=== PATIENT | female | born 1985 | race Caucasian/White ===

== ENCOUNTER 2019-03-11 01:18 | Inpatient (IN) | payer OTHER ==
[~2019-03-11 01:18] MED LIST: OXYTOCIN 10 UNIT/ML VIAL IM PRN
[2019-03-11] MEDS ORDERED: DIPH/PERTUSS(ACELL)/TETANUS VAC/PF 0.5 ML SYR (>=10YO) IM PRN (01:26)
[2019-03-11] MEDS ORDERED: DIBUCAINE 1% OINTMENT 28 GM TP PRN (01:26)
[2019-03-11] MEDS ORDERED: MEASLES,MUMPS&RUBELLA VACC/PF 0.5 ML VIAL SUBCUT PRN (01:26)
[2019-03-11] MEDS ORDERED: BENZOCAINE/MENTHOL AEROSOL SPRAY 56 ML TOP PRN (01:26)
[2019-03-11] MEDS ORDERED: OXYTOCIN/NORMAL SALINE 20 UNIT/1,000 ML RTUINJ IV PRN (01:26)
[2019-03-11] MEDS ORDERED: RINGERS SOLUTION,LACTATED 1,000 ML IV PRN (01:26)
[2019-03-11] MEDS ORDERED: ZOLPIDEM TARTRATE 5 MG TABLET PO PRN (01:26)
[2019-03-11] MEDS ORDERED: PSEUDOEPHEDRINE HCL 30 MG TABLET PO PRN (01:27)
[2019-03-11] MEDS ORDERED: GLYCERIN/WITCH HAZEL LEAF 1 EACH MED..WIPE TP PRN (01:27)
[2019-03-11] MEDS ORDERED: PROMETHAZINE HCL 25 MG SUPP.RECT PR PRN (01:27)
[2019-03-11] MEDS ORDERED: ACETAMINOPHEN 650 MG SUPP.RECT PR PRN (01:27)
[2019-03-11] MEDS ORDERED: DIPHENHYDRAMINE HCL 25 MG CAPSULE PO PRN (01:27)
[2019-03-11] MEDS ORDERED: PROMETHAZINE HCL INJ 25 MG/1 ML VIAL IV PRN (01:27)
[2019-03-11] MEDS ORDERED: MAGNESIUM HYDROXIDE SUSP 30 ML UDCUP PO PRN (01:27)
[2019-03-11] MEDS ORDERED: PROMETHAZINE HCL 25 MG TABLET PO PRN (01:27)
[2019-03-11] MEDS ORDERED: NA PHOS,M-B/NA PHOS,DI-BA (ADULT) 133 ML ENEMA PR PRN (01:27)
[2019-03-11] MEDS ORDERED: OXYTOCIN 10 UNIT/ML VIAL ONE (01:36)
--- NOTE | 2019-03-11 01:39 | Admission Physical ---
Datetime Report Generated by CPN: 03/11/2019 01:39 CURRENT ADMISSION Chief Complaint: Uterine Contractions; Suspected Ruptured Membranes Admit Impression : Active Labor Admit Plan: Admit to Unit; Initiate Labor Protocol ALLERGIES Medication Allergies: No Medication Allergies: Penicillins/Hives (03/11/2019) Latex: No Latex Allergies OBSTETRICAL HISTORY EDC: 04/09/2019 00:00 : 6 Para: 4 Term: 3 : 1 SAB: 1 IAB: 0 Ectopic: 0 Livin Cesareans: 0 VBACs: 0 Multiple Births: 0 SEE RECORDS Alcohol: No Marijuana : Yes Cocaine: Yes Other Illicit Drugs: No Cigarettes: Current Everyday Smoker. [id number] PHYSICAL EXAM General: Normal HEENT: Normal Neurologic: Normal Thyroid: Normal Heart: Normal Lungs: Normal Breast: Normal Back: Normal Abdomen: Normal Genitourinary Exam: Normal Extremities: Normal DTRs: Normal Pelvic Type: Adequate Vital Signs: Reviewed MEMBRANES Pooling: Positive Membranes: Ruptured FETUS A Monitoring: External US; Internal Scalp Electrode Presentation: Vertex Admit Comment: Called to main lobby for precipitous delivery at front door. Found mother laying just inside front door, pants to knees and baby delivered and crying. COrd clamped and cut. to nursery staff for care. Cord blood obtained. Placenta intact. She was placed on stretcher and then brought to LDR unit Placenta then delivered intact spontaneously. EBL 300 cc. Perineum intact.Fundus firm and bleeding stopped. MOther stable. Female infant stable to nursery. PLANS FOR LABOR AND DELIVERY Labor and Delivery: None Pain Management: None Feeding Preference: Breast Benefit of Breast Feed Discussed: Yes Circumcision: N/A INFORMED CONSENT Informed Consent Obtained: Vaginal Delivery; Risks, Benefits and Alternatives Discussed Signature: with User ID: Edward : with User ID: Edward
[2019-03-11 01:53] LABS: ABSOLUTE BASOPHILS # (AUTO) 0.1 10^3/uL (0.0-0.2); ABSOLUTE EOSINOPHILS # (AUTO) 0.1 10^3/uL (0.0-0.6); ABSOLUTE LYMPHOCYTES (AUTO) 2.6 10^3/uL (0.5-4.7); ABSOLUTE MONOCYTES (AUTO) 0.8 10^3/uL (0.1-1.4); ABSOLUTE NEUT (AUTO) 13.6 10^3/uL (1.7-8.2); BASOPHILS % (AUTO) 0.6 % (0-2); EOSINOPHILS % (AUTO) 0.5 % (0-6); HEMATOCRIT 28.8 % (36.0-47.0); LYMPHOCYTES % (AUTO) 15.3 % (13-45); MEAN CORPUSCULAR HGB CONC 31.3 g/dL (32.0-36.0); MEAN CORPUSCULAR VOLUME 67 fl (80-97); MONOCYTES % (AUTO) 4.8 % (3-13); PLATELET COUNT 467 10^3/uL (150-450); SEGMENTED NEUTROPHILS % (AUTO) 78.8 % (42-78); TOTAL CELLS COUNTED % (AUTO) 100 %; WHITE BLOOD COUNT 17.2 10^3/uL (4.0-10.5)
--- NOTE | 2019-03-11 02:59 | Delivery Summary ---
Del Sum A-C Datetime Report Generated by CPN: 03/11/2019 02:58 DELIVERY PERSONNEL DELIVERY PERSONNEL: [id number] Delivery Doctor:: Prudence Rosado MD Labor and Delivery Nurse:: Heather Rosario RN Consulting Systems Engineer/WIND FARM SUPPORT SPECIALIST: Karely Ross, ST MATERNAL INFORMATION Delivery Anesthesia: None Medications After Delivery: Pitocin Drip 20 Units/1000ml NSS Estimated Blood Loss (ml): 300 Maternal Complications: Precipitous Labor (<3hrs); Other Complication Details: limited pnc, methadone use LABOR SUMMARY EDC: 04/09/2019 00:00 No. Babies in Womb: 1 Attempted: No Labor Anesthesia: None LABOR INFORMATION Reason for Induction: Not Applicable Onset of Labor: 03/11/2019 20:00 Other Ripening Agents: n/a Oxytocin: N/A Group B Beta Strep: unknown Antibiotics # of Doses: 0 Antibiotics Time of Last Dose: N/A Name of Antibiotic Given: N/A Steroids Given: None Reason Steroids Not Administered: Not Applicable Other Reason Not Administered: n/a MEMBRANES Membranes Rupture Method: Spontaneous Rupture of Membranes: 03/11/2019 12:55 Length of Rupture (hr): -11.92 Amniotic Fluid Color: Clear Amniotic Fluid Amount: None Amniotic Fluid Odor: None STAGES OF LABOR Stage 3 hr: 0 Stage 3 min: 13 Total Time in Labor hr: -18 Total Time in Labor min: -47 VAGINAL DELIVERY Episiotomy: None Laceration Extension #1: N/A Laceration Repair: Not Applicable CSECTION DELIVERY Primary Indication: N/A Secondary Indication: N/A CSection Incision: N/A BABY A INFORMATION Delivery Date/Time: 03/11/2019 01:00 Method of Delivery: Vaginal Born in Route : No : N/A Forceps: N/A Vacuum Extraction: N/A Shoulder Dystocia : No PRESENTATION/POSITION BABY A Presentation: Cephalic Cephalic Presentation: Vertex Breech Presentation: N/A PLACENTA INFORMATION BABY A Placenta Delivery Time : 03/11/2019 01:13 Placenta Method of Delivery: Spontaneous Placenta Status: Delivered SCORES BABY A Heart Rate 1 min: >100 bpm Resp Effort 1 min: Good Cry Reflex Irritability 1 min: Cough or Sneeze or Pulls Away Muscle Tone 1 min: Active Motion Color 1 min: Blue/Pale Resuscitation Effort 1 min: Tactile Stimulation SCORE 1 MIN: 8 Heart Rate 5 min: >100 bpm Resp Effort 5 min: Good Cry Reflex Irritability 5 min: Cough or Sneeze or Pulls Away Muscle Tone 5 min: Active Motion Color 5 min: Body [place], Extremities Blue Resuscitation Effort 5 min: Tactile Stimulation SCORE 5 MIN: 9 INFORMATION BABY A Gestational Age at Delivery: 35.6 Gestational Status: Late - 34- 36.6 Weeks Infant Outcome : Liveborn Infant Condition : Stable Infant Sex: Female IDENTIFICATION BABY A Infant Verification Date/Time: 03/11/2019 01:50 ID Band Number: [id number] Mother's Name Verified: Yes RN Verifying Infant: D Bellavance RN/J Niebuhr RN WEIGHT/LENGTH BABY A Birthweight (gm): 2415 Weight (lb): 5 Infant Weight (oz): 5 Length (in): 18.25 Length (cm): 46.36 CORD INFORMATION BABY A No. Cord Vessels: 3 Nuchal Cord : N/A Cord Blood Taken: Yes-For Storage (Mom's Blood type +) Suction: None ASSESSMENT BABY A Skin to Skin: No BABY B INFORMATION : N/A
[2019-03-11 03:37] LABS: APPEARANCE,URINE CLOUDY; BILIRUBIN,URINE NEGATIVE (NEGATIVE); COLOR,URINE YELLOW; GLUCOSE, URINE NEGATIVE (NEGATIVE); KETONES,URINE NEGATIVE (NEGATIVE); LEUKOCYTE ESTERASE,URINE SMALL (NEGATIVE); NITRITE,URINE NEGATIVE (NEGATIVE); PROTEIN,URINE 30 mg/dL (NEGATIVE); URINE SPECIFIC GRAVITY 1.014
[2019-03-11 04:07] LABS: URINE AMPHETAMINES SCREEN NEGATIVE; URINE BARBITURATES SCREEN NEGATIVE; URINE BENZODIAZEPINES SCREEN NEGATIVE; URINE PHENCYCLIDINE SCREEN NEGATIVE
[2019-03-11 04:22] LABS: URINE COCAINE SCREEN UNCONFIRMED POSITIVE; URINE MARIJUANA (THC) SCREEN UNCONFIRMED POSITIVE; URINE METHADONE SCREEN UNCONFIRMED POSITIVE
[2019-03-11] MEDS: IBUPROFEN 800 MG TABLET PO SCH ×4 (04:33→21:52)
[2019-03-11 05:08] LABS: CHLAM PCR DETECTED (NOT DETECT)
[2019-03-11 07:31] LABS: HEMATOCRIT 28.1 % (36.0-47.0); HEMOGLOBIN 8.7 g/dL (12.0-15.5); MEAN CORPUSCULAR HEMOGLOBIN 20.7 pg (27.0-33.4); MEAN CORPUSCULAR VOLUME 67 fl (80-97); PLATELET COUNT 423 10^3/uL (150-450); RED CELL DISTRIBUTION WIDTH 20.7 % (11.5-14.0); WHITE BLOOD COUNT 17.2 10^3/uL (4.0-10.5)
[2019-03-11] MEDS ORDERED: METHADONE HCL 10 MG TABLET PO SCH (08:00)
--- NOTE | 2019-03-11 09:30 | PDOC PROGRESS REPORT ---
Subjective-OB Progress Note for:: 03/11/19 - Delivery Day, Informed pt of + GC/+Chlamydia infection, discussed treating w/ antibiotics today. Will draw Hep C, Hep B, HIV STD check. Pt up voiding, no complaints, A+, Rubella Immune. +UDS, landscape architect and planner in place, Pt desires PP BTL, did not sign her consent papers though.. will attempt to get them for her to sign while inpatient Physical Exam (OB) Vital Signs: Temp Pulse Resp BP Pulse Ox 98.8 F 68 20 110/76 99 03/11/19 08:02 03/11/19 08:02 03/11/19 08:02 03/11/19 08:02 03/11/19 08:02 Intake & Output 03/10/19 03/11/19 03/12/19 06:59 06:59 06:59 Weight 70.45 kg - General General Appearance: Appears well, Alert In distress: None - Lochia Lochia Amount: Small 10-25 ml Lochia Color: Rubra/Red - Abdomen Description: Soft Hernia Present: Yes Fundal Description: Firm Fundal Height: u/u - u/2 - Respiratory Respiratory Status: No respiratory distress - Abdominal Inspection: Normal Distension: No distension Tenderness: Nontender - Genitourinary Genitourinary Note: voiding - Extremities Upper extremity: Normal inspection Lower extremities: Normal inspection - Neurological Cognition: Normal Orientation: AAOx4 - Psychological Associated symptoms: Normal affect - Skin Skin Temperature: Warm Skin Moisture: Dry Objective-Diagnostic Laboratory: 03/11/19 07:19 03/11/19 03/11/19 03/11/19 01:28 01:28 02:37 WBC 17.2 H RBC 4.30 Hgb 9.0 L Hct 28.8 L MCV 67 L MCH 21.0 L MCHC 31.3 L RDW 21.0 H Plt Count 467 H Seg Neutrophils % 78.8 H Urine Color YELLOW Urine Appearance CLOUDY Urine pH 8.0 Ur Specific [place] 1.014 Urine Protein 30 H Urine Glucose (UA) NEGATIVE Urine Ketones NEGATIVE Urine Blood MODERATE H Urine Nitrite NEGATIVE Ur Leukocyte Esterase SMALL H Blood Type A POSITIVE Antibody Screen NEGATIVE 03/11/19 07:19 WBC 17.2 H RBC 4.20 Hgb 8.7 L Hct 28.1 L MCV 67 L MCH 20.7 L MCHC 31.0 L RDW 20.7 H Plt Count 423 Seg Neutrophils % Urine Color Urine Appearance Urine pH Ur Specific [place] Urine Protein Urine Glucose (UA) Urine Ketones Urine Blood Urine Nitrite Ur Leukocyte Esterase Blood Type Antibody Screen Assessment and Plan(PN) - Assessment and Plan (1) Precipitous delivery Is this a current diagnosis for this admission?: Yes (2) Limited care in third trimester Is this a current diagnosis for this admission?: Yes (3) Drug abuse and dependence Is this a current diagnosis for this admission?: Yes (4) Chlamydia infection affecting Qualifiers: Trimester: third trimester Qualified Code(s): O98.813 - Other maternal infectious and parasitic diseases complicating , third trimester; A74.9 - Chlamydial infection, unspecified Is this a current diagnosis for this admission?: Yes (5) Gonorrhea affecting Qualifiers: Trimester: third trimester Qualified Code(s): O98.213 - Gonorrhea complicating , third trimester Is this a current diagnosis for this admission?: Yes (6) Anemia affecting Qualifiers: Trimester: third trimester Qualified Code(s): O99.013 - Anemia complicating , third trimester Is this a current diagnosis for this admission?: Yes Plan:: Will treat for +GC/ +chlamydia infection, Discharge planning order in place, Routine PP orders, Ambulation encouraged - Time Spent with Patient Time with patient: Less than 15 minutes Medications reviewed and adjusted accordingly: Yes - Disposition Anticipated Discharge: Home Within: within 48 hours
[2019-03-11] MEDS ORDERED: CEFTRIAXONE INJ 250 MG VIAL IM ONE (10:00)
[2019-03-11] MEDS ORDERED: LIDOCAINE HCL 1% INJ (FOR 250 MG VIAL) INJ ONE (10:00)
[2019-03-11] MEDS: SENNOSIDES/DOCUSATE 8.6-50 MG 1 EACH TABLET PO SCH (10:10)
[2019-03-11] MEDS: FAMOTIDINE 20 MG TABLET PO SCH ×2 (10:10→21:52)
[2019-03-11] MEDS: DOCUSATE SODIUM 100 MG CAPSULE PO SCH ×2 (10:10→17:29)
[2019-03-11] MEDS: PRENATAL VITAMIN W DHA CAPSULE PO SCH (10:11)
[2019-03-11] MEDS: METHADONE HCL 10 MG TABLET PO SCH (10:11)
[2019-03-11] MEDS: FERROUS SULFATE 325 MG TABLET PO SCH ×2 (10:11→17:29)
[2019-03-11] MEDS ORDERED: AZITHROMYCIN 1 GM SUSP PACKET PO ONE (10:30)
[2019-03-12] MEDS: IBUPROFEN 800 MG TABLET PO SCH ×3 (05:44→23:00)
[2019-03-12] MEDS: DOCUSATE SODIUM 100 MG CAPSULE PO SCH ×2 (09:20→17:35)
[2019-03-12] MEDS: PRENATAL VITAMIN W DHA CAPSULE PO SCH (09:21)
[2019-03-12] MEDS: SENNOSIDES/DOCUSATE 8.6-50 MG 1 EACH TABLET PO SCH (09:21)
[2019-03-12] MEDS: FAMOTIDINE 20 MG TABLET PO SCH ×2 (09:22→23:01)
[2019-03-12] MEDS: FERROUS SULFATE 325 MG TABLET PO SCH ×2 (09:22→17:35)
[2019-03-12] MEDS: METHADONE HCL 10 MG TABLET PO SCH (09:23)
[2019-03-12 09:36] LABS: HEPATITIS C VIRUS AB 0.1 s/co ratio (0.0-0.9)
[2019-03-12 09:41] LABS: HEPATITS B SURFACE ANTIGEN Negative (Negative)
--- NOTE | 2019-03-12 10:45 | PDOC PROGRESS REPORT ---
Subjective-OB Progress Note for:: 03/12/19 Subjective: reports bleeding slowing, pain controlled with current meds, denies needs Physical Exam (OB) Vital Signs: Temp Pulse Resp BP Pulse Ox 97.4 F 74 16 129/84 H 98 03/12/19 07:49 03/12/19 07:49 03/12/19 07:49 03/12/19 07:49 03/12/19 07:49 Intake & Output 03/11/19 03/12/19 03/13/19 06:59 06:59 06:59 Weight 70.45 kg - Abdomen Description: Soft Hernia Present: No Fundal Description: Firm, Midline Fundal Height: u/u - u/2 - Abdominal Distension: No distension Tenderness: Nontender - Extremities Lower extremities: Artemio's sign - neg Calf: Normal, Nontender Objective-Diagnostic Laboratory: 03/11/19 07:19 Assessment and Plan(PN) - Assessment and Plan (1) Anemia affecting Qualifiers: Trimester: third trimester Qualified Code(s): O99.013 - Anemia complicating , third trimester Is this a current diagnosis for this admission?: Yes (2) Chlamydia infection affecting Qualifiers: Trimester: third trimester Qualified Code(s): O98.813 - Other maternal infectious and parasitic diseases complicating , third trimester; A74.9 - Chlamydial infection, unspecified Is this a current diagnosis for this admission?: Yes (3) Drug abuse and dependence Is this a current diagnosis for this admission?: Yes (4) Gonorrhea affecting Qualifiers: Trimester: third trimester Qualified Code(s): O98.213 - Gonorrhea complicating , third trimester Is this a current diagnosis for this admission?: Yes (5) Limited care in third trimester Is this a current diagnosis for this admission?: Yes (6) Precipitous delivery Is this a current diagnosis for this admission?: Yes - Time Spent with Patient Time with patient: Less than 15 minutes Medications reviewed and adjusted accordingly: Yes - Disposition Anticipated Discharge: Home Within: within 24 hours
[2019-03-13] MEDS: IBUPROFEN 800 MG TABLET PO SCH (05:48)
[2019-03-13] MEDS: METHADONE HCL 10 MG TABLET PO SCH (09:21)
[2019-03-13] MEDS: PRENATAL VITAMIN W DHA CAPSULE PO SCH (09:21)
[2019-03-13] MEDS: FERROUS SULFATE 325 MG TABLET PO SCH (09:21)
[2019-03-13] MEDS: SENNOSIDES/DOCUSATE 8.6-50 MG 1 EACH TABLET PO SCH (09:21)
[2019-03-13] MEDS: DOCUSATE SODIUM 100 MG CAPSULE PO SCH (09:21)
[2019-03-13] MEDS: FAMOTIDINE 20 MG TABLET PO SCH (09:21)
--- NOTE | 2019-03-13 11:09 | PDOC DISCHARGE SUMMARY ---
Impression - Admit/DC Date/PCP Admission Date/Primary Care Provider: 03/11/19 01:18 JULIETTE TRIMBLE DO Discharge Date: 03/13/19 - Discharge Diagnosis (1) Anemia affecting Is this a current diagnosis for this admission?: Yes (2) Chlamydia infection affecting Is this a current diagnosis for this admission?: Yes (3) Drug abuse and dependence Is this a current diagnosis for this admission?: Yes (4) Gonorrhea affecting Is this a current diagnosis for this admission?: Yes (5) Limited care in third trimester Is this a current diagnosis for this admission?: Yes (6) Precipitous delivery Is this a current diagnosis for this admission?: Yes - Additional Information Discharge Diet: Regular Discharge Activity: Balance Activity w/Rest, Pelvic Rest Referrals: JULIETTE TRIMBLE DO [Primary Care Provider] - Prescriptions: Ferrous Sulfate [Albafort] 325 mg PO BID #60 tablet Ibuprofen [Motrin 800 mg Tablet] 800 mg PO Q8HP PRN #60 tablet PRN Reason: Vit/Dha [ Multi + Dha Capsule] 1 cap PO DAILY #90 capsule Home Medications: Methadone HCl 80 mg PO 03/11/19 Ferrous Sulfate [[place]bafort] 325 mg PO BID #60 tablet 03/13/19 Ibuprofen [Motrin 800 mg Tablet] 800 mg PO Q8HP PRN #60 tablet 03/13/19 Vit/Dha [ Multi + Dha Capsule] 1 cap PO DAILY #90 capsule 03/13/19 HPI Gestational Age: 36 Reason(s) for Admission: Onset of Labor Procedures: None Intrapartum Procedure(s): Spontaneous Vaginal Delivery Results Laboratory Results: WBC 17.2 10^3/uL (4.0-10.5) H 03/11/19 07:19 RBC 4.20 10^6/uL (3.72-5.28) 03/11/19 07:19 Hgb 8.7 g/dL (12.0-15.5) L 03/11/19 07:19 Hct 28.1 % (36.0-47.0) L 03/11/19 07:19 MCV 67 fl (80-97) L 03/11/19 07:19 MCH 20.7 pg (27.0-33.4) L 03/11/19 07:19 MCHC 31.0 g/dL (32.0-36.0) L 03/11/19 07:19 RDW 20.7 % (11.5-14.0) H 03/11/19 07:19 Plt Count 423 10^3/uL (150-450) 03/11/19 07:19 Lymph % (Auto) 15.3 % (13-45) 03/11/19 01:28 [place] % (Auto) 4.8 % (3-13) 03/11/19 01:28 Eos % (Auto) 0.5 % (0-6) 03/11/19 01:28 Baso % (Auto) 0.6 % (0-2) 03/11/19 01:28 Absolute Neuts (auto) 13.6 10^3/uL (1.7-8.2) H 03/11/19 01:28 Absolute Lymphs (auto) 2.6 10^3/uL (0.5-4.7) 03/11/19 01:28 Absolute Monos (auto) 0.8 10^3/uL (0.1-1.4) 03/11/19 01:28 Absolute Eos (auto) 0.1 10^3/uL (0.0-0.6) 03/11/19 01:28 Absolute Basos (auto) 0.1 10^3/uL (0.0-0.2) 03/11/19 01:28 Seg Neutrophils % 78.8 % (42-78) H 03/11/19 01:28 Urine Color YELLOW 03/11/19 02:37 Urine Appearance CLOUDY 03/11/19 02:37 Urine pH 8.0 (5.0-9.0) 03/11/19 02:37 Ur Specific [place] 1.014 03/11/19 02:37 Urine Protein 30 mg/dL (NEGATIVE) H 03/11/19 02:37 Urine Glucose (UA) NEGATIVE mg/dL (NEGATIVE) 03/11/19 02:37 Urine Ketones NEGATIVE mg/dL (NEGATIVE) 03/11/19 02:37 Urine Blood MODERATE (NEGATIVE) H 03/11/19 02:37 Urine Nitrite NEGATIVE (NEGATIVE) 03/11/19 02:37 Urine Bilirubin NEGATIVE (NEGATIVE) 03/11/19 02:37 Urine Urobilinogen 2.0 mg/dL (<2.0) H 03/11/19 02:37 Ur Leukocyte Esterase SMALL (NEGATIVE) H 03/11/19 02:37 Urine Ascorbic Acid NEGATIVE (NEGATIVE) 03/11/19 02:37 Urine Opiates Screen NEGATIVE 03/11/19 02:37 Urine Methadone Screen UNCONFIRMED POSITIVE 03/11/19 02:37 Ur Barbiturates Screen NEGATIVE 03/11/19 02:37 Ur Phencyclidine Scrn NEGATIVE 03/11/19 02:37 Ur Amphetamines Screen NEGATIVE 03/11/19 02:37 U Benzodiazepines Scrn NEGATIVE 03/11/19 02:37 Urine Cocaine Screen UNCONFIRMED POSITIVE 03/11/19 02:37 U Marijuana (THC) Screen UNCONFIRMED POSITIVE 03/11/19 02:37 RPR NONREACTIVE (NONREACTIVE) 03/11/19 01:28 Chlamydia DNA (PCR) DETECTED (NOT DETECT) H 03/11/19 02:37 Hep Bs Antigen Negative (Negative) 03/11/19 01:28 Hepatitis C (BLANCA) 0.1 s/co ratio (0.0-0.9) 03/11/19 01:28 Hep C Verif Com 1 Comment (.) 03/11/19 01:28 HIV 1&2 Antibody NEGATIVE (NEGATIVE) 03/11/19 01:28 N.gonorrhoeae DNA (PCR) DETECTED (NOT DETECT) H 03/11/19 02:37 Blood Type A POSITIVE 03/11/19 01:28 Antibody Screen NEGATIVE 03/11/19 01:28 Plan Plan of Treatment: follow up at [facility] in 4 weeks for post check
[2019-03-13] MEDS ORDERED: MEDROXYPROGESTERONE ACET INJ 150 MG/1 ML VIAL IM ONE (11:30)
[2019-03-13 13:18] VITALS: BP 128/83
[2019-03-15 11:39] LABS: CANNABINOID CONFIRMATION UR Positive (.); COCAINE METABOLITE CONFIRM UR Positive (.)
== END 2019-03-13 13:09 | disposition home or self-care (01) | DRG 805 ==
LOC: LR 01:18 → 2S 03:39
PROVIDERS: ADMIT Obstetrics & Gynecology; ATTEND Obstetrics & Gynecology
PROC: 10E0XZZ Delivery of Products of Conception, External Approach (ICD-10-PCS; principal; 2019-03-11)
DX: O62.3 Precipitate labor (principal); O60.14X0 Preterm labor third trimester with preterm delivery third trimester, not applicable or unspecified; Z37.0 Single live birth; O99.324 Drug use complicating childbirth; O98.22 Gonorrhea complicating childbirth; O98.32 Other infections with a predominantly sexual mode of transmission complicating childbirth; O99.334 Smoking (tobacco) complicating childbirth; F17.210 Nicotine dependence, cigarettes, uncomplicated; F12.10 Cannabis abuse, uncomplicated; F14.10 Cocaine abuse, uncomplicated; Z3A.35 35 weeks gestation of pregnancy; F15.90 Other stimulant use, unspecified, uncomplicated; A74.9 Chlamydial infection, unspecified; O99.02 Anemia complicating childbirth; Z88.0 Allergy status to penicillin; Z79.899 Other long term (current) drug therapy
CPT/HCPCS: 36415; 80307; 80349; 80353; 81005; 85025; 86592; 86701; 86803; 86804; 86850; 86900; 86901; 87340; 87491; 87591; 88307; G0480; J0696; J1050; J2590; J3490; Q0144